=== PATIENT | male | born 1985 | race African-American/Black ===

== ENCOUNTER 2020-03-31 22:20 | Emergency (ER) | payer MEDICAID ==
[~2020-03-31] VITALS: Ht 190.5 cm; Wt 86.4 kg
[2020-03-31 23:01] VITALS: BP 126/66
== END 2020-03-31 23:52 ==
LOC: EMS 22:23
DX: R40.0 Somnolence (principal); F11.90 Opioid use, unspecified, uncomplicated; F17.210 Nicotine dependence, cigarettes, uncomplicated; F12.90 Cannabis use, unspecified, uncomplicated; F15.90 Other stimulant use, unspecified, uncomplicated
CPT/HCPCS: 99283; Z7502

== ENCOUNTER 2025-01-02 01:52 | Inpatient (IN) | payer MEDICAID, OTHER ==
[~2025-01-02] VITALS: Ht 190.5 cm; Wt 98.0 kg
[2025-01-02 03:22] LABS: PLATELET COUNT (AUTO) 212 K/uL (150-450); RED BLOOD CELL COUNT(AUTO) 4.06 MIL/uL (4.50-5.90); RED CELL DISTRIBUTION WIDTH 12.9 % (11.5-14.5); WHITE BLOOD COUNT (AUTO) 14.1 K/uL (4.5-11.0)
[2025-01-02 03:40] LABS: CALCIUM, TOTAL 7.7 mg/dL (8.8-10.5); CREATININE 1.07 mg/dL (0.60-1.30); GLOMERULAR FILTR. RATE CALC > 60 mL/min (>60); GLUCOSE,RANDOM 99 mg/dL (70-110); SODIUM SERUM 138 mmol/L (136-145); UREA NITROGEN, BLOOD 12 mg/dL (7-18)
[2025-01-02 05:31] LABS: APPEARANCE,URINE CLEAR (CLEAR); GLUCOSE, URINE (UA) NEGATIVE (NEGATIVE); LEUKOCYTE ESTERASE ,URINE NEGATIVE (NEGATIVE); NITRATE,URINE NEGATIVE (NEGATIVE); OCCULT BLOOD,URINE SMALL (NEGATIVE); SPECIFIC GRAVITIY, URINE 1.019 (1.003-1.030)
[2025-01-02] MEDS: PIPERACILLIN/TAZO 3.375 GM/D5W 50 ML IV ONE (05:56)
[2025-01-02] MEDS: VANCOMYCIN 1GM/WATER(PEG/NADA) 200 ML IV ONE (06:13)
[2025-01-02] MEDS ORDERED: IBUP-45 PO (11:46)
[2025-01-02] MEDS ORDERED: ACET-2247 PO (11:46)
[2025-01-02] MEDS ORDERED: QUET300T2 PO (11:46)
[2025-01-02] MEDS ORDERED: BUPR1TAB46 SL (11:46)
[2025-01-02] MEDS ORDERED: MELA5TAB40 PO (11:46)
[2025-01-02] MEDS ORDERED: DOCU-385 PO (11:46)
[2025-01-02] MEDS ORDERED: BUPR-50 PO (11:46)
[2025-01-02] MEDS ORDERED: ALBU18HF12 IH (11:46)
[2025-01-02 12:00] VITALS: BP 124/78; PULSE 79; RESP 18; TEMP 97.8; O2SAT 98
[2025-01-02] MEDS: BUPRENORPHINE HCL/NALOXONE HCL 8-2 MG SUBLINGUAL TABLET SL SCH (13:57)
[2025-01-02] MEDS ORDERED: ALBUTEROL SULFATE HFA 90 MCG/PUFF 8 GM INHALER IH PRN (14:30)
[2025-01-02] MEDS: DOCUSATE SODIUM 100 MG CAPSULE PO PRN (15:34)
[2025-01-02 19:21] VITALS: BP 120/65; PULSE 84; RESP 18; TEMP 99; O2SAT 97
[2025-01-02] MEDS: IBUPROFEN 200 MG TABLET PO PRN (20:24)
[2025-01-03 04:21] VITALS: BP 108/69; PULSE 70; RESP 18; TEMP 97.5; O2SAT 100
[2025-01-03] MEDS ORDERED: RINGERS SOLUTION,LACTATED 1,000 ML IV ONE (07:42)
[2025-01-03 08:00] VITALS: BP 115/70; PULSE 71; RESP 19; TEMP 97.7; O2SAT 99
[2025-01-03] MEDS: ETHYL ALCOHOL 62% ANTISEPTIC NASAL SANITIZER 0.6 ML AMPUL NASAL ONE (08:10)
[2025-01-03] MEDS: CHLORHEXIDINE GLUCONATE 2% TOWELETTE [2'S/6'S] TP ONE (08:10)
[2025-01-03] MEDS ORDERED: BUPIVACAINE 0.25%/EPI 1:200,000/PF 30 ML VIAL ONE (08:34)
[2025-01-03] MEDS ORDERED: SODIUM CHLORIDE 0.9% 1,000 ML ONE (08:34)
[2025-01-03] MEDS: VANCOMYCIN 1.75GM/WATER(PEG) 350 ML IV ONE (08:45)
[2025-01-03] MEDS: BUPIVACAINE HCL/PF 0.25% 30 ML VIAL ONE (09:38)
[2025-01-03] MEDS ORDERED: MEPERIDINE-PF 25 MG/ML VIAL IVP PRN (09:45)
[2025-01-03] MEDS ORDERED: FentaNYL CITRATE PF 100 MCG/2 ML VIAL IVP PRN (09:45)
[2025-01-03] MEDS: BuPROPion HCL XL 150 MG ER TABLET PO SCH (10:44)
[2025-01-03] MEDS: BUPRENORPHINE HCL/NALOXONE HCL 8-2 MG SUBLINGUAL TABLET SL SCH (10:45)
[2025-01-03] MEDS ORDERED: MIDAZOLAM HCL 2 MG/2 ML VIAL ONE (12:00)
[2025-01-03] MEDS ORDERED: FentaNYL CITRATE PF 100 MCG/2 ML VIAL ONE (12:00)
[2025-01-03] MEDS: ACETAMINOPHEN/CODEINE 300-30 MG TABLET PO PRN (14:31)
[2025-01-03 19:45] VITALS: BP 115/69; PULSE 78; RESP 18; TEMP 97.7; O2SAT 95
[2025-01-03] MEDS: OXYGEN THERAPY IH SCH (19:49)
[2025-01-03] MEDS: ETHYL ALCOHOL 62% ANTISEPTIC NASAL SANITIZER 0.6 ML AMPUL NASAL SCH (20:00)
[2025-01-03] MEDS: MELATONIN 5 MG TABLET PO PRN (20:00)
[2025-01-04 04:06] VITALS: BP 123/80; PULSE 72; RESP 18; TEMP 98.2; O2SAT 97
[2025-01-04 08:25] VITALS: BP 118/91; PULSE 82; RESP 18; TEMP 98.6; O2SAT 100
[2025-01-04] MEDS ORDERED: ROCURONIUM BROMIDE 10 MG/ML 5 ML VIAL IVP ONE (12:03)
[2025-01-04] MEDS ORDERED: SUCCINYLCHOLINE CHLORIDE 20 MG/ML 10 ML VIAL IVP ONE (12:03)
[2025-01-04] MEDS ORDERED: LIDOCAINE/PF 2% 5 ML VIAL IM ONE (12:03)
[2025-01-04] MEDS ORDERED: ACETAMINOPHEN/ISO-OSM 1000 MG/100 ML BOTTLE IV ONE (12:03)
[2025-01-04] MEDS ORDERED: PROPOFOL 1% 20 ML VIAL IVP ONE (12:03)
[2025-01-04] MEDS ORDERED: ONDANSETRON HCL 4 MG/2 ML VIAL IVP ONE (12:03)
[2025-01-04] MEDS: MORPHINE SULFATE 4 MG/ML SYRINGE IVP PRN (13:24)
[2025-01-04] MEDS ORDERED: IPRATROPIUM BROMIDE 0.5 MG/2.5 ML NEB SOLUTION NEB PRN (13:45)
[2025-01-04] MEDS ORDERED: BISACODYL 10 MG RECTAL RECTAL SUPPOSITORY PR PRN (13:45)
[2025-01-04] MEDS ORDERED: HYDROCODONE/ACETAMINOPHEN 5-325 MG TABLET PO PRN (13:45)
[2025-01-04] MEDS ORDERED: MAGNESIUM HYDROXIDE SUSPENSION 30 ML UDCUP PO PRN (13:45)
[2025-01-04] MEDS ORDERED: ONDANSETRON HCL 4 MG/2 ML VIAL IVP PRN (13:45)
[2025-01-04] MEDS ORDERED: ZOLPIDEM TARTRATE 5 MG TABLET PO PRN (13:45)
[2025-01-04] MEDS ORDERED: MORPHINE SULFATE 2 MG/ML SYRINGE IVP PRN (13:45)
[2025-01-04] MEDS ORDERED: ALBUTEROL SULFATE 2.5 MG/0.5 ML NEB SOLUTION NEB PRN (13:45)
[2025-01-04] MEDS ORDERED: SODIUM CHLORIDE 0.9% 500 ML IV ONE (14:22)
[2025-01-04] MEDS: PIPERACILLIN/TAZO 3.375 GM/D5W 50 ML IV SCH (14:33)
[2025-01-04] MEDS: HEPARIN SODIUM,PORCINE 5,000 UNITS/ML VIAL SQ SCH (15:19)
[2025-01-04] MEDS: VANCOMYCIN 1GM/WATER(PEG/NADA) 200 ML IV SCH (15:19)
[2025-01-04 20:06] VITALS: BP 138/84; PULSE 90; RESP 16; TEMP 98.2; O2SAT 95
[2025-01-05 04:00] VITALS: BP 124/83; PULSE 68; RESP 18; TEMP 97.5; O2SAT 98
[2025-01-05 07:23] LABS: PLATELET COUNT (AUTO)-OB 276 K/uL (150-450); RED BLOOD CELL COUNT(AUTO) 4.24 MIL/uL (4.50-5.90); RED CELL DISTRIBUTION WIDTH 13.0 % (11.5-14.5); WHITE BLOOD COUNT (AUTO) 6.4 K/uL (4.5-11.0)
[2025-01-05 07:34] LABS: CALCIUM, TOTAL 8.9 mg/dL (8.8-10.5); CREATININE 1.09 mg/dL (0.60-1.30); GLOMERULAR FILTR. RATE CALC > 60 mL/min (>60); GLUCOSE,RANDOM 90 mg/dL (70-110); SODIUM SERUM 141 mmol/L (136-145); UREA NITROGEN, BLOOD 10 mg/dL (7-18)
[2025-01-05] MEDS: PANTOPRAZOLE SODIUM 40 MG DR TABLET PO SCH (08:27)
[2025-01-05 08:50] VITALS: BP 127/74; PULSE 77; RESP 18; TEMP 97.7; O2SAT 99
[2025-01-05] MEDS ORDERED: IBUPROFEN 800 MG TABLET PO PRN (13:15)
[2025-01-05] MEDS ORDERED: ACETAMINOPHEN 500 MG TABLET PO PRN (13:15)
[2025-01-05 13:26] VITALS: BP 122/89; PULSE 99; RESP 18; TEMP 97.3; O2SAT 100
[2025-01-05] MEDS ORDERED: IBUP-2124 PO (13:50)
[2025-01-05] MEDS ORDERED: AMOX-457 PO (13:51)
[2025-01-05] MEDS ORDERED: DOXY-354 PO (13:52)
[2025-01-05] MEDS: ACETAMINOPHEN 325 MG TABLET PO PRN (14:18)
[2025-01-05 20:23] VITALS: BP 125/80; PULSE 71; RESP 18; TEMP 98.1; O2SAT 100
== END 2025-01-05 22:20 | DRG 718 ==
LOC: EMS 01:52 → EDH 08:38 → 6S 11:30 → 4S 01-03 05:44
PROVIDERS: ADMIT Hospitalist; ATTEND Hospitalist
PROC: 0V950ZZ Drainage of Scrotum, Open Approach (ICD-10-PCS; principal; 2025-01-03 09:00)
DX: N49.2 Inflammatory disorders of scrotum (principal); F14.90 Cocaine use, unspecified, uncomplicated; N49.0 Inflammatory disorders of seminal vesicle; Z72.0 Tobacco use; Z79.899 Other long term (current) drug therapy
CPT/HCPCS: 76870; 80048; 81001; 85025; 87070; 87075; 87081; 87186; 87205; 96365; 99285; G0378; J0131; J0330; J1644; J2250; J2270; J2405; J2543; J2704; J3010; J3490; J7030; J7040; J7120